=== PATIENT | female | born 1990 | race Caucasian/White ===

== ENCOUNTER → 2017-12-08 | Outpatient (CLI) | payer OTHER ==
[~2017-12-08] MED LIST: NORG1TAB74 PO
== END ==
LOC: LAB 14:51
PROVIDERS: ATTEND Otolaryngology
DX: J30.9 Allergic rhinitis, unspecified (principal); Z91.018 Allergy to other foods
CPT/HCPCS: 36415; 86003

== ENCOUNTER → 2017-12-20 | Outpatient (CLI) | payer OTHER ==
[~2017-12-20] MED LIST changes: +EPIN0.3P15 IM
== END ==
LOC: LAB 16:15
PROVIDERS: ATTEND Otolaryngology
DX: Z91.018 Allergy to other foods (principal); J30.9 Allergic rhinitis, unspecified
CPT/HCPCS: 36415; 86003